=== PATIENT | female | born 1960 | race Caucasian/White ===

== ENCOUNTER 2022-09-28 07:18 | Day surgery (SDC) | payer OTHER ==
[~2022-09-28] VITALS: Ht 157.5 cm; Wt 70.5 kg
[~2022-09-28 07:18] MED LIST: SODIUM CHLORIDE 0.9% 1,000 ML ONE
[2022-09-28] MEDS ORDERED: SODIUM CHLORIDE 0.9% 1,000 ML IV ONE (09:00)
[2022-09-28] MEDS ORDERED: MIDAZOLAM HCL 2 MG/2 ML VIAL ONE (09:39)
[2022-09-28] MEDS ORDERED: FentaNYL CITRATE PF 100 MCG/2 ML VIAL ONE (09:39)
== END 2022-09-28 12:05 | disposition home or self-care (01) ==
LOC: SURGERY 07:18
PROVIDERS: ATTEND Surgery
DX: K57.30 Diverticulosis of large intestine without perforation or abscess without bleeding (principal); K64.9 Unspecified hemorrhoids; Z98.890 Other specified postprocedural states
CPT/HCPCS: 45378; J3010; J2250; J7030